=== PATIENT | female | born 1975 | race Caucasian/White ===

== ENCOUNTER 2019-06-25 07:11 | Emergency (ER) | payer OTHER ==
[~2019-06-25] VITALS: Ht 162.6 cm; Wt 78.0 kg
[2019-06-25 07:22] VITALS: Ht 162.6 cm; Wt 78.0 kg
[2019-06-25 07:54] VITALS: BP 140/80
== END 2019-06-25 07:54 | disposition home or self-care (01) ==
LOC: ED 07:11
DX: H10.9 Unspecified conjunctivitis (principal); Z90.710 Acquired absence of both cervix and uterus